=== PATIENT | male | born 1990 | race African-American/Black ===

== ENCOUNTER 2020-05-09 17:45 | Emergency (ER) | payer OTHER ==
[~2020-05-09] VITALS: Ht 172.7 cm; Wt 72.6 kg
[2020-05-09] MEDS ORDERED: TRILEPTAL150 MG PO (17:53)
[2020-05-09] MEDS ORDERED: KEFLEX500 M1 PO (18:59)
[2020-05-09 19:16] VITALS: BP 138/79
== END 2020-05-09 19:17 | disposition home or self-care (01) ==
LOC: M.ERS 17:45
DX: S91.112A Laceration without foreign body of left great toe without damage to nail, initial encounter (principal); Z88.6 Allergy status to analgesic agent; W51.XXXA Accidental striking against or bumped into by another person, initial encounter; Y93.89 Activity, other specified; Y92.89 Other specified places as the place of occurrence of the external cause; Y99.8 Other external cause status